=== PATIENT | female | born 1990 | race Caucasian/White ===

== ENCOUNTER 2022-08-27 01:17 | Emergency (ER) | payer BC, SELFPAY ==
[2022-08-27 01:19] VITALS: BP 138/89; PULSE 95; RESP 18; TEMP 37.2; O2SAT 100; BMI 20.9
--- NOTE | 2022-08-27 01:43 | EX.ED.VIS.HA ---
HPI History of Present Illness Chief Complaint: Headache Informant: patient Onset/Context/Timing Onset: Days Context: Sudden Timing: Continuous Quality -Headache: Positive for Similar Prior Headaches and Burning Location: Left neck and occiput Worsened by: Noises, light Relieved by: Nothing Associated Symptoms/Injury Associated Symptoms: Positive for Fever, Nausea, Vomiting, Visual Changes, Blurred Vision and Photophobia; Negative for Sore Throat, Sinus Pressure, Numbness, Tingling, Preceding Aura or Visual Loss Narrative Narrative: Patient presents with headache that has been getting progressively worse over the past few days. Patient states it came on gradually. Patient states she has had similar headaches over the past several months. Patient describes the pain as burning. Patient states the pain is over the left side of her neck and into her occiput and up to the top of her head. Patient states her headache is worse with noises. Patient states nothing seems to help with it. Patient admits to a low-grade fever of 99 at home. Patient admits to some nausea and vomiting. Patient denies any paresthesias. Patient does admit to some blurry vision and photophobia. Patient denies any trauma or injury. [facility] Medical History Bipolar 1 disorder Home Medications vits no.[id number] fum 27 mg iron-folic acid 800 mcg tablet ( Vitamin) 1 ea PO DAILY 04/18/17 [History Last Taken 04/22/17 12:00 1] Ibuprofen [Motrin] 800 mg PO TID PRN PRN Pain ##60 04/26/17 [Rx Last Taken Unknown] docusate sodium 100 mg capsule (DOK) 100 mg PO BID PRN PRN Constipation ##60 04/26/17 [Rx Last Taken Unknown] Allergy/AdvReac Type Severity Reaction Status Date / Time latex Allergy Rash Verified 08/27/22 01:24 Surgical History Previous section Tubal ligation status Social History Smoking Status: Current some day smoker tobacco type: cigarettes ROS ROS ED Constitutional Constitutional ED: Reports fever(s) and subjective; Denies chills Eyes Eyes: Reports blurry vision and change in vision ENT ENT ED: Reports ear pain; Denies rhinorrhea or sore throat Cardiovascular Cardiovascular: Denies chest pain or palpitations Respiratory/Chest Respiratory/Chest: Denies cough or dyspnea Gastrointestinal Gastrointestinal: Reports nausea and vomiting Genitourinary Genitourinary ED: Denies dysuria or hematuria Musculoskeletal Musculoskeletal: Reports neck pain; Denies back pain Integumentary Reports rash; Denies abscess Neurologic Neurologic: Reports headache(s); Denies weakness Allergic/Immunologic Allergic/Immunologic ED: Denies mouth swelling or urticaria EXAM Physical Exam Const Vital Signs: 08/27/22 01:19 Temperature 99 F Temperature Source Temporal Pulse Rate 95 Respiratory Rate 18 Blood Pressure 138/89 H Blood Pressure Mean 105 Pulse Ox 100 Oxygen Delivery Method Room Air Positive well nourished and well developed General Appearance ED: well developed and NAD HEENT Reports moist mucous membranes Neck supple, no meningeal signs and no JVD Neck Narrative: There is mild tenderness over the left cervical paraspinal muscles. There is no midline tenderness. There is no bony crepitance or step-off. There is full range of motion. General: tenderness Resp normal respiratory effort and clear to auscultation bilaterally Cardio regular rate, regular rhythm and no murmurs GI normal to inspection, nondistended, normoactive bowel sounds and non-tender Palpation: soft Extremity normal to inspection General Extremety ED: Negative for edema or tenderness General Extremity: Negative for edema Neuro oriented x3, CN's II-XII intact bilaterally and no sensory deficits noted Sensorium / Orientation: alert Motor Exam: strength 5/5 throughout Psych mental status grossly normal Skin no rashes or lesions noted MDM MDM MDM Narrative Medical decision making narrative: Differential diagnosis includes migraine headache, sinusitis, viral upper respiratory infection, muscular strain, and tension headache. CBC will be obtained to assess for leukocytosis and anemia. Basic metabolic profile will be obtained to assess for electrolyte abnormality and renal function. COVID-19 rapid antigen will be obtained to assess for COVID infection. Influenza A and influenza B rapid antigens will be obtained to assess for influenza infection. Lab Data Lab results narrative: COVID-19 rapid antigen was reviewed and was negative. Influenza A and influenza B antigens were reviewed and were negative. CBC was reviewed and was within normal limits. Basic metabolic profile was reviewed and was within normal limits. Labs: Laboratory Results - last 24 hr 08/27/22 08/27/22 01:45 01:45 WBC 7.4 RBC 4.51 Hgb 13.3 Hct 38.9 MCV 86.3 MCH 29.5 MCHC 34.2 RDW Std Deviation 37.1 RDW Coeff of [place] 11.8 Plt Count 175 MPV 10.5 Immature Gran % (Auto) 0.400 Neut % (Auto) 52.2 Lymph % (Auto) 38.4 [place] % (Auto) 7.3 Eos % (Auto) 1.3 Baso % (Auto) 0.4 Absolute Neuts (auto) 3.9 Absolute Lymphs (auto) 2.85 Nucleated RBC % 0 Sodium 136 Potassium 3.4 L Chloride 105 Carbon Dioxide 23.0 Anion Gap 8 BUN 19 H Creatinine 0.98 Estim Creat Clear Calc 68.80 Est GFR (MDRD) Af Amer 85 Est GFR (MDRD) Non-Af 70 BUN/Creatinine Ratio 19.5 Glucose 109 H Calcium 9.0 Treatment and Re-Evaluation Narrative: Patient was given IV fluids, Reglan, Benadryl, and Toradol. Patient is feeling better on reevaluation. Patient was advised of her findings. Patient was instructed to get plenty of rest. Patient was instructed to follow-up with her primary care physician in 5 to 7 days. Patient understood and was agreeable with the plan. All questions were answered. Discharge Plan Triage Chief Complaint: Headache ED Provider: Raffaele Malin Dx/Rx/DC Orders Clinical Impression: Headache Instructions: ED Headache Unspecified Prescriptions: No Action vit no.[id number] [ Vitamin] 1 EACH tablet 1 ea PO DAILY docusate sodium [DOK] 100 MG capsule 100 mg PO BID PRN PRN (Reason: Constipation) Qty: 60 1RF Ibuprofen [Motrin] 800 MG tablet 800 mg PO TID PRN PRN (Reason: Pain) Qty: 60 1RF Disposition Disposition: Home, Self Care
[2022-08-27] MEDS: 0.9% Normal Saline 1,000 ML 999 ML IV (01:50)
[2022-08-27] MEDS: Ketorolac 30 MG/ML Syringe IV (01:50)
[2022-08-27] MEDS: DiphenhydrAMINE 50 MG/ML Syringe 25 MG IV (01:50)
[2022-08-27] MEDS: Metoclopramide 10 MG/2 ML Vial IV (01:51)
[2022-08-27 01:55] LABS: Absolute Lymphocyte Count 2.85 X10^3/uL (0.83-4.51); Absolute Neutrophil Count 3.9 X10^3/uL (2.0-7.7); Basophil# 0.03 X10^3/uL; Basophil% 0.4 % (0-1); Eosinophils% 1.3 % (0-5); Hematocrit 38.9 % (37-47); Hemoglobin 13.3 g/dL (12.0-15.0); Lymphocyte # 2.85 X10^3/ul (0.83-4.51); Lymphocyte % 38.4 % (19-41); Mean Corp Hgb Conc 34.2 g/dL (32-36); Mean Corpuscular Hgb 29.5 pg (27.0-32.0); Mean Corpuscular Volume 86.3 fL (81-99); Mean Platelet Vol. 10.5 fl (6.2-12.0); Monocyte# 0.54 X10^3/uL; Monocyte% 7.3 % (0-10); NRBC Flagged by Analyzer 0 % (0-5); Neutrophil # 3.87 X10^3/uL (2.7-7.7); Neutrophil % 52.2 % (47-70); Platelet Count 175 K/mm3 (150-450); RBC Distribution Width CV 11.8 % (11.6-14.6); RBC Distribution Width SD 37.1 fl (35.1-43.9); Red Blood Count 4.51 M/mm3 (4.2-5.4); White Blood Count 7.4 K/mm3 (4.4-11.0)
[2022-08-27 02:11] LABS: Anion Gap 8 (5-15); BUN 19 mg/dL (7-18); BUN/Creat Ratio 19.5 RATIO (10-20); Chloride 105 mmol/L (98-107); Creatinine, Serum 0.98 mg/dL (0.55-1.02); EST Glomerular Filtration Rate 70 mL/min (>60); Est Glom Filt Rate - Afr Amer 85 mL/min (>60); Glucose 109 mg/dL (74-106); Potassium 3.4 mmol/L (3.5-5.1); Sodium Level 136 mmol/L (136-145)
[2022-08-27 03:43] VITALS: BP 130/74; PULSE 66; RESP 15; O2SAT 97
== END 2022-08-27 03:48 | disposition home or self-care (01) ==
PROVIDERS: Emergency Provider Emergency Medicine; Visit Provider Emergency Medicine
DX: R51.9 Headache, unspecified (principal); F17.210 Nicotine dependence, cigarettes, uncomplicated
CPT/HCPCS: 80048; 85025; 87428; 96374; 96375; 99283; J7030; A4216

== ENCOUNTER 2023-02-22 12:52 | Emergency (ER) | payer BC, MEDICAID, SELFPAY ==
[2023-02-22 12:54] VITALS: BP 136/90; PULSE 99; RESP 18; TEMP 36.8; O2SAT 98; BMI 19.5
--- NOTE | 2023-02-22 13:07 | EX.ED.DYSGE1 ---
HPI History of Present Illness Chief Complaint: General Illness Detail of Chief Complaint: Not feeling well Informant: patient Narrative Narrative: Patient presents to the emergency department with complaint of not feeling well for several weeks. Patient states that she started with a cough about 3 weeks ago. Patient states that she was diagnosed with renal insufficiency and is supposed to see a specialist. She has had low-grade fevers up to 99 1 at home. She complains of intermittent headaches and at times blurred vision. No history of migraines but at times does have photophobia and some nausea. Patient is noted some dark urine and has urinary frequency but no dysuria. She denies abdominal pain. She has had no vomiting or diarrhea. She denies blood in her stool or black tarry stool. Patient seen in urgent care and was referred to the ER for evaluation. She denies any sick contacts. [facility] Medical History Bipolar 1 disorder Home Medications vits no.[id number] fum 27 mg iron-folic acid 800 mcg tablet ( Vitamin) 1 ea PO DAILY 04/18/17 [History Last Taken 04/22/17 12:00 1] Ibuprofen [Motrin] 800 mg PO TID PRN PRN Pain #60 tabs 04/26/17 [Rx Last Taken Unknown] docusate sodium 100 mg capsule (DOK) 100 mg PO BID PRN PRN Constipation ##60 04/26/17 [Rx Last Taken Unknown] sulfamethoxazole 800 mg-trimethoprim 160 mg tablet 1 tab PO BID #6 TABLETS 02/22/23 [Rx Last Taken Unknown] Allergy/AdvReac Type Severity Reaction Status Date / Time latex Allergy Rash Verified 02/22/23 12:53 Surgical History Previous section Tubal ligation status Social History Smoking Status: Current some day smoker tobacco type: cigarettes ROS ROS ED Review of Systems ROS Unobtainable: other Constitutional Constitutional ED: Reports fever(s) and lethargy; Denies chills, sweats or weight loss Eyes Eyes: Denies blurry vision, change in vision or diplopia ENT ENT ED: Denies rhinorrhea or sore throat Cardiovascular Cardiovascular: Denies chest pain, orthopnea or racing heartbeat Respiratory/Chest Respiratory/Chest: Denies cough, dyspnea, dyspnea on exertion, orthopnea or sputum Gastrointestinal Gastrointestinal: Reports nausea; Denies abdominal pain, diarrhea or vomiting Genitourinary Genitourinary ED: Reports urinary frequency; Denies dysuria or hematuria Musculoskeletal Musculoskeletal: Denies arthralgias, back pain, myalgias or neck pain Integumentary Denies abscess, Abrasions or rash Neurologic Neurologic: Reports headache(s); Denies weakness Psychiatric Psychiatric: Denies anxiety, depression or suicidal thoughts Endocrine Endocrinology: Denies polydipsia, polyphagia or polyuria Hematologic/Lymphatic Hematologic/Lymphatic: Denies easy bleeding, easy bruising or lymphadenopathy Allergic/Immunologic Allergic/Immunologic ED: Denies mouth swelling, tongue swelling or urticaria EXAM Physical Exam Const Vital Signs: 02/22/23 12:54 02/22/23 13:22 Temperature 98.2 F Temperature Source Temporal Pulse Rate 99 Respiratory Rate 18 Respiratory Pattern Normal Blood Pressure 136/90 H Blood Pressure Mean 105 Pulse Ox 98 Oxygen Delivery Method Room Air Positive well nourished and well developed General Appearance ED: well developed and NAD HEENT Reports TM's clear and moist mucous membranes normocephalic and atraumatic; Negative for trauma or tenderness Tympanic Membrane ED: Yes TM's clear Eyes PERRL and EOMs intact bilaterally General Eye ED: Negative for pale conjunctiva or scleral icterus Neck no lymphadenopathy, supple and no JVD General: Negative for tenderness Chest Wall inspection of chest normal and palpation of chest normal Chest: Negative for tenderness Resp normal respiratory effort and clear to auscultation bilaterally Effort and Inspection: Negative for respiratory distress or pain with movement Auscultation: Negative for rhonchi, wheezes or diminished lung sounds Cardio regular rate, regular rhythm, S1 normal heart sound, S2 normal heart sound and no murmurs Peripheral Pulses: pulses 2+ throughout GI normal to inspection, nondistended, normoactive bowel sounds, soft to palpation, non-tender, non-distended and no masses Back/Spine no CVA tenderness and no thoracic nor lumbar tenderness Extremity normal to inspection General Extremety ED: Negative for edema General Extremity: Negative for edema Neuro oriented x3, CN's II-XII intact bilaterally, no sensory deficits noted and gait normal Sensorium / Orientation: awake, alert, oriented to person, oriented to place and oriented to time Motor Exam: strength 5/5 throughout and strength abnormal Psych mental status grossly normal Skin no rashes or lesions noted and no wounds MDM MDM MDM Narrative Medical decision making narrative: Patient with vague complaints of not feeling well. She has multiple complaints of headache and generalized weakness and urinary frequency. IV line established. COVID and flu obtained were negative. CBC with differential showed a normal white count of 7.5 with hemoglobin of 14 and platelet count of 207. Chemistries unremarkable. hCG was negative. Urinalysis positive for 25 Estrace and 10 and 25 WBCs and +1 bacteria. I did send off a culture. Given complaint of subjective fever and frequency will treat with Bactrim for 3 days awaiting culture results. Patient will be treated as a migraine given Reglan, Benadryl, and Toradol. I feel she can be discharged to home. Advised to follow-up with her primary care physician within next 3 to 5 days. Lab Data Attestation: I reviewed the patient's lab results. Labs: Laboratory Results - last 24 hr 02/22/23 02/22/23 13:10 13:20 WBC 7.5 RBC 4.76 Hgb 14.5 Hct 41.9 MCV 88.0 MCH 30.5 MCHC 34.6 RDW Std Deviation 38.3 RDW Coeff of [place] 11.9 Plt Count 207 MPV 10.0 Immature Gran % (Auto) 0.300 Neut % (Auto) 58.1 Lymph % (Auto) 31.9 [place] % (Auto) 6.9 Eos % (Auto) 2.4 Baso % (Auto) 0.4 Absolute Neuts (auto) 4.4 Absolute Lymphs (auto) 2.39 Nucleated RBC % 0 Sodium 139 Potassium 3.6 Chloride 109 H Carbon Dioxide 27.0 Anion Gap 3 L BUN 11 Creatinine 0.88 Estim Creat Clear Calc 72.42 Est GFR (MDRD) Af Amer 95 Est GFR (MDRD) Non-Af 79 BUN/Creatinine Ratio 12.4 Glucose 107 H Calcium 8.9 Serum , Qual NEGATIVE Urine Color Yellow Urine Clarity Clear Urine pH 7.0 Ur Specific [place] 1.005 Urine Protein Negative Urine Glucose (UA) Normal Urine Ketones Negative Urine Occult Blood Negative Urine Nitrite Negative Urine Bilirubin Negative Urine Urobilinogen Normal Ur Leukocyte Esterase 25 H Urine RBC 0 SEEN Urine WBC 10-25 SEEN Ur Squamous Epith Cells 0-5 SEEN Urine Bacteria 1+ Urine Mucus 0 SEEN Radiography Diagnostic Testing: Clinical Impression(s) from Imaging Studies Chest X-Ray 02/22/23 13:28 IMPRESSION: No radiographic evidence of acute cardiopulmonary disease. Electronically Signed: Terrell Uriarte MD at 13:57 EDT Reading Location ID and State: [facility] / [place] Tel , Service support , 1 view chest x-ray obtained interpreted by myself as no evidence of infiltrate or pneumothorax or acute disease process. Radiology in agreement. Discharge Plan Triage Chief Complaint: General Illness ED Provider: Basia Mcgregor Dx/Rx/DC Orders Clinical Impression: UTI (urinary tract infection), Headache Instructions: ED, Migraine (Classical), ED Cystitis Female Adult Prescriptions: New sulfamethoxazole-trimethoprim [sulfamethoxazole-trimethoprim] 800-160 mg tablet 1 tab PO BID Qty: 6 0RF No Action vit no.[id number] [ Vitamin] 1 EACH tablet 1 ea PO DAILY docusate sodium [DOK] 100 MG capsule 100 mg PO BID PRN PRN (Reason: Constipation) Qty: 60 1RF Ibuprofen [Motrin] 800 MG tablet 800 mg PO TID PRN PRN (Reason: Pain) Qty: 60 1RF Primary Care Provider: Care Physician,No Primary Referrals: NOT,DEFINED [Non-Staff] - Activity Restrictions/Additional Instructions: See your primary care physician within next 3 to 5 days. Disposition Disposition: Home, Self Care Discharge Date/Time: 02/22/23 14:26
[2023-02-22 13:18] LABS: Mucous, Urine 0 SEEN /hpf (<or=2+); Red Blood Cells-Urine 0 SEEN /hpf (0-5)
[2023-02-22] MEDS: 0.9% Normal Saline (1000mL) 1,000 ML 1000 ML IV (13:23)
[2023-02-22 13:25] LABS: Color, Urine Yellow (Yellow); Glucose, Dipstick Normal (Normal); Ketone-Dipstick Negative (Negative); Leukocyte Esterase-Dipstick 25 /ul (Negative); Nitrite-Dipstick Negative (Negative); Occult Blood-Urine Negative /ul (Negative); Protein-Dipstick Negative (Negative); Specific Gravity, Urine 1.005 (1.002-1.030); Urine Bilirubin Dipstick Negative (Negative); Urine Clarity Clear (Clear); Urine Urobilinogen Normal (Normal)
[2023-02-22 13:27] LABS: Bacteria 1+ /hpf (None Seen); Squamous Epithelial Cells - UA 0-5 SEEN /hpf (5-10); White Blood Cells 10-25 SEEN /hpf (0-5)
--- NOTE | 2023-02-22 13:28 | RAD_ITS ---
INDICATION: cough EXAMINATION/TECHNIQUE: X-RAY - XR Chest 1 View COMPARISON: None. FINDINGS: LINES/DEVICES: None. LUNGS: No consolidation, edema or effusion. The lungs are somewhat hyperinflated. No pneumothorax. MEDIASTINUM AND CARDIOVASCULAR STRUCTURES: Cardiac silhouette not enlarged. Central airways and mediastinal contour are unremarkable. BONES AND SOFT TISSUES: Unremarkable. RAD/Chest 1 View (Portable) IMPRESSION: No radiographic evidence of acute cardiopulmonary disease. Electronically Signed: Terrell Uriarte MD at 13:57 EDT ,
[2023-02-22 13:31] LABS: Absolute Lymphocyte Count 2.39 X10^3/uL (0.83-4.51); Absolute Neutrophil Count 4.4 X10^3/uL (2.0-7.7); Basophil# 0.03 X10^3/uL; Basophil% 0.4 % (0-1); Eosinophil# 0.18 X10^3/uL; Eosinophils% 2.4 % (0-5); Hematocrit 41.9 % (37-47); Hemoglobin 14.5 g/dL (12.0-15.0); Lymphocyte # 2.39 X10^3/ul (0.83-4.51); Lymphocyte % 31.9 % (19-41); Mean Corp Hgb Conc 34.6 g/dL (32-36); Mean Corpuscular Hgb 30.5 pg (27.0-32.0); Monocyte# 0.52 X10^3/uL; Monocyte% 6.9 % (0-10); NRBC Flagged by Analyzer 0 % (0-5); Neutrophil # 4.35 X10^3/uL (2.7-7.7); Neutrophil % 58.1 % (47-70); Platelet Count 207 K/mm3 (150-450); RBC Distribution Width CV 11.9 % (11.6-14.6); RBC Distribution Width SD 38.3 fl (35.1-43.9); Red Blood Count 4.76 M/mm3 (4.2-5.4); White Blood Count 7.5 K/mm3 (4.4-11.0)
[2023-02-22 13:40] LABS: Internal QC Validated? YES +Cl - CLEAR BKGD; Pregnancy, Serum, hCG Quali. NEGATIVE Negative; Record Kit Lot#, Serum Preg. HCG0000667200
[2023-02-22 13:45] LABS: Anion Gap 3 (5-15); BUN 11 mg/dL (7-18); BUN/Creat Ratio 12.4 RATIO (10-20); Calcium,Total 8.9 mg/dL (8.5-10.1); Chloride 109 mmol/L (98-107); Creatinine, Serum 0.88 mg/dL (0.55-1.02); EST Glomerular Filtration Rate 79 mL/min (>60); Est Glom Filt Rate - Afr Amer 95 mL/min (>60); Estimated Creatinine Clearance 72.42 ml/min; Glucose 107 mg/dL (74-106); Potassium 3.6 mmol/L (3.5-5.1); Sodium Level 139 mmol/L (136-145)
[2023-02-22] MEDS: Ketorolac 30 MG/ML Syringe IV (14:16)
[2023-02-22] MEDS: Smz/Tmp Ds Tablet 1 TABLET PO (14:21)
[2023-02-22 14:25] VITALS: BP 122/73; PULSE 65; RESP 15; O2SAT 98
== END 2023-02-22 14:26 | disposition home or self-care (01) ==
PROVIDERS: Emergency Provider Emergency Medicine; Visit Provider Emergency Medicine
DX: N39.0 Urinary tract infection, site not specified (principal); R51.9 Headache, unspecified; F17.210 Nicotine dependence, cigarettes, uncomplicated
CPT/HCPCS: 71045; 80048; 81001; 84703; 85025; 87428; 96374; 99283; J7030; A4216